=== PATIENT | male | born 1995 | race Caucasian/White ===

== ENCOUNTER 2016-12-25 00:39 | Emergency (ER) | payer OTHER ==
--- NOTE | 2016-12-25 00:51 | CPEKG ---
Heart Rate: 152 RR Interval: 395 P-R Interval: 116 QRSD Interval: 88 QT Interval: 276 QTC Interval: 439 P [place]: 65 QRS [place]: 183 T Wave [place]: 13 EKG Severity - ABNORMAL ECG - EKG Impression: SINUS TACHYCARDIA EKG Impression: INFERIOR Q WAVES, PROBABLY NORMAL VARIATION Electronically Signed By: Cheyenne Schaefer 25-Dec-2016 07:05:33
[2016-12-25] MEDS ORDERED: NS 1,000 ML IV ONE (01:07)
--- NOTE | 2016-12-25 02:08 | EDPHY ---
H & P Stated Complaint: BIBA for LSD OD. was in traffic & combative w PD. now calm. Time Seen by Provider: 12/25/16 01:26 HPI/ROS: HPI The patient presents with altered mental status which occurred just prior to arrival, he was found wandering in traffic by police. The patient was at a concert tonight and admits taking LSD and MDMA. He says now, he is actually feeling much better and has no complaints. REVIEW OF SYSTEMS Constitutional: No fever, no chills. Eyes: No discharge. ENT: No sore throat. Cardiovascular: No chest pain, no palpitations. Respiratory: No cough, no shortness of breath. Gastrointestinal: No abdominal pain, no vomiting. Genitourinary: No hematuria. Musculoskeletal: No back pain. Skin: No rashes. Neurological: No headache. PMHx: Healthy Soc Hx: College student, drug use as detailed above PHYSICAL General Appearance: Alert, no distress Eyes: Pupils equal and round no pallor or injection ENT, Mouth: Mucous membranes moist Respiratory: There are no retractions, lungs are clear to auscultation Cardiovascular: Tachycardic Gastrointestinal: Abdomen is soft and non-tender, no masses, bowel sounds normal Neurological: A&O, moves all extremities Skin: Warm and dry, no rashes Musculoskeletal: Neck is supple non tender Extremities: symmetrical, full range of motion Psychiatric: Patient is oriented X 3, there is no agitation Source: Patient, EMS - Personal History Current Tetanus/Diphtheria Vaccine: Yes Current Tetanus Diphtheria and Acellular Pertussis (TDAP): Yes Tetanus Vaccine Date: 2013 - Medical/Surgical History Hx Asthma: No Hx Chronic Respiratory Disease: No Hx Diabetes: No Hx Cardiac Disease: No Hx Renal Disease: No Hx Cirrhosis: No Hx Alcoholism: No Hx HIV/AIDS: No Hx Splenectomy or Spleen Trauma: No Other PMH: denies - Social History Smoking Status: Never smoked Constitutional: Initial Vital Signs Temperature (C) 37.8 C 12/25/16 00:59 Heart Rate 155 H 12/25/16 00:59 Respiratory Rate 18 12/25/16 00:59 Blood Pressure 154/75 H 12/25/16 00:59 O2 Sat (%) 95 12/25/16 00:59 O2 Delivery Mode Room Air Allergies/Adverse Reactions: No Known Allergies Allergy (Unverified 12/25/16 00:58) Home Medications: Medication Instructions Recorded NK [No Known Home Meds] 12/25/16 Medical Decision Making ED Course/Re-evaluation: The patient's tachycardia resolved. He continued to feel well and became more sober throughout his time in the emergency room. He felt well enough to go home and was discharged after he was observed ambulating with a steady gait. Differential Diagnosis: This is a 20-year-old healthy college student who presents after taking LSD and MDMA earlier tonight, then found wandering in traffic. He does not have any traumatic injuries or any complaints. On exam, he is tachycardic and hypertensive, otherwise is well-appearing with a normal exam. Differential diagnosis includes polysubstance abuse, anxiety, hypovolemia. - Data Points Medications Given: Discontinued Medications Sodium Chloride (Ns) 1,000 mls @ 0 mls/hr IV ONCE ONE PRN Reason: Wide Open Stop: 12/25/16 01:08 Last Admin: 12/25/16 01:10 Dose: 1,000 mls Departure - Departure Disposition: Home, Routine, Self-Care Clinical Impression: LSD overdose, Ecstasy poisoning Condition: Good Instructions: Cannabis Abuse (ED), Hallucinations (ED) Referrals: NONE *PRIMARY CARE P,. [Primary Care Provider] - As per Instructions
[2016-12-25 03:38] VITALS: BP 122/83; PULSE 100; RESP 16; TEMP 97.9; O2SAT 96
== END 2016-12-25 03:37 | disposition home or self-care (01) ==
DX: T40.8X1A Poisoning by lysergide [LSD], accidental (unintentional), initial encounter (principal); T43.621A Poisoning by amphetamines, accidental (unintentional), initial encounter